=== PATIENT | female | born 1955 | race Caucasian/White ===

== ENCOUNTER 2022-05-15 10:18 | Outpatient (CLI) | payer MEDICARE, OTHER | END 2022-05-15 10:19 | disposition home or self-care (01) | LOC: SCSMRI 10:18 | PROVIDERS: ATTEND Specialist | DX: M51.16 Intervertebral disc disorders with radiculopathy, lumbar region (principal); M48.061 Spinal stenosis, lumbar region without neurogenic claudication; M51.27 Other intervertebral disc displacement, lumbosacral region | CPT/HCPCS: 72148 ==

== ENCOUNTER 2024-01-13 11:04 | Outpatient (CLI) | payer MEDICARE, OTHER | END 2024-01-13 11:05 | disposition home or self-care (01) | LOC: RAD 11:04 | PROVIDERS: ATTEND Internal Medicine Cardiovascular Disease | DX: R06.02 Shortness of breath (principal) | CPT/HCPCS: 71046 ==

== ENCOUNTER 2024-02-03 09:11 | Outpatient (CLI) | payer MEDICARE, OTHER ==
[2024-02-03] MEDS ORDERED: Iopamidol 370 76% 100 ML VIAL ONE (11:43)
== END 2024-02-03 09:12 | disposition home or self-care (01) ==
LOC: BICCT 09:11
PROVIDERS: ATTEND Internal Medicine Cardiovascular Disease
DX: R06.02 Shortness of breath (principal)
CPT/HCPCS: 36415; 71275; 82565; Q9967